=== PATIENT | female | born 1970 | race Caucasian/White ===

== ENCOUNTER 2019-12-11 18:49 | Emergency (ER) | payer MEDICAID, SELFPAY ==
[2019-12-11 19:15] VITALS: BP 131/79; PULSE 98; RESP 18; TEMP 36.3; O2SAT 100
--- NOTE | 2019-12-11 21:37 | ED.ALLEREA ---
HPI - Allergic Reaction General Chief complaint: Allergic Reaction Stated complaint: hives x3 days Time Seen by Provider: 12/11/19 20:27 History of Present Illness HPI narrative: Patient is a 49-year-old female who reports the development of times over the last 3 days. Began on her arms and they have gotten bigger in size. They have spread across her entire body. She noticed prior to coming to the ER that her left tongue began swelling. No difficulty breathing or swallowing. No overt fevers chills or sweats. She has not started any new medications. She reports she takes levothyroxine as well as venlafaxine. Has not tried any antihistamines. Reports that with her hypothyroidism she occasionally gets hives but not to this extent. Related Data Home Medications Medication Instructions Recorded Confirmed levothyroxine 12/11/19 12/11/19 venlafaxine mg PO 12/11/19 Allergies Allergy/AdvReac Type Severity Reaction Status Date / Time aspirin Allergy Mild Unknown Verified 12/11/19 20:18 butalbital Allergy Mild Unknown Verified 12/11/19 20:18 caffeine Allergy Mild Unknown Verified 12/11/19 20:18 codeine Allergy Mild Unknown Verified 12/11/19 20:18 penicillin G Allergy Mild Unknown Verified 12/11/19 20:18 pseudoephedrine Allergy Mild Unknown Verified 12/11/19 20:18 sulfamethoxazole Allergy Mild Unknown Verified 12/11/19 20:18 trimethoprim Allergy Mild Unknown Verified 12/11/19 20:18 butorphanol Allergy Unknown Unknown Verified 12/11/19 20:18 hydrocodone Allergy Unknown Unknown Verified 12/11/19 20:18 morphine Allergy Unknown Unknown Verified 12/11/19 20:18 Penicillins Allergy Unknown Unknown Verified 12/11/19 20:18 tramadol Allergy Unknown Unknown Verified 12/11/19 20:18 OTHERS Allergy Mild Unknown Uncoded 12/11/19 20:18 DIPHENHYDRAMINE HCL Allergy Unknown Unknown Uncoded 12/11/19 20:18 PCN Allergy Unknown Unknown Uncoded 12/11/19 20:18 Review of Systems Review of Systems: All systems reviewed & are unremarkable except as noted in HPI and below Constitutional: Constitutional: Denies chills, Denies fever(s) and Denies weakness ENT: Denies dysphagia, Denies nasal congestion and Denies sore throat Cardiovascular: Cardiovascular: Denies chest pain and Denies radiating jaw, neck or arm pain Respiratory: Respiratory: Denies cough, Denies dyspnea and Denies wheezing Integumentary/Breasts: Skin/Breast: Reports pruritus, Reports erythema and Reports rash PMFSH Past Medical History Medical History (Updated 12/11/19 @ 23:48 by Odilno Dawson MD) Hypothyroidism Surgical History Surgical History (Updated 12/11/19 @ 23:44 by Odilon Dawson MD) No pertinent past surgical history Family History Family History (Updated 09/09/15 @ 23:19 by DOCTOR UNKNOWN) Father Hypertension Family history of diabetes mellitus in first degree relative Patient's father is Mother Family history of chronic obstructive pulmonary disease Family history of lung cancer Grandparent Diabetes mellitus Social History Social History Smoking status: Never smoker Second hand tobacco smoke exposure: No Alcohol intake: never Exam Narrative: Exam Narrative: GENERAL: Well-appearing, well-nourished, and in no acute distress. HEAD: Normocephalic, atraumatic. ENT: Mucous membranes moist. Mild edema left anterior tongue. Normal posterior oropharynx. CHEST: Clear to auscultation. No respiratory distress. HEART: Regular rate and rhythm. Normal peripheral pulses. ABDOMEN: Soft, nontender, nondistended. EXTREMITIES: Normal range of motion. No edema. SKIN: Warm, dry, urticarial rash across the back and upper extremities. Small spot left of the left eye. NEURO: Alert and oriented x3. Course Course Emergency Course: Rash nearly resolved with Benadryl/prednisone/famotidine. Swelling of the tongue has gone away. Noted with breathing or swallowing. Discharge home with prednisone/vomiting/Benadryl. Recommend
[2019-12-11] MEDS: diphenhydrAMINE HCl INJ 50 MG/ML VIAL 25 MG IV PUSH (21:45)
[2019-12-11] MEDS: FAMOTIDINE 20 MG/2 ML VIAL IV PUSH (21:45)
[2019-12-11] MEDS: methylPREDNISolone SOD SUCC 125 MG VIAL IV PUSH (21:45)
[2019-12-11 22:43] VITALS: BP 124/86; PULSE 84; RESP 17; O2SAT 98
[2019-12-12 00:15] VITALS: BP 122/64; PULSE 84; RESP 17; O2SAT 98
== END 2019-12-12 00:17 | disposition home or self-care (01) ==
PROVIDERS: Emergency Provider Emergency Medicine; PCP Physician Assistant
DX: L50.9 Urticaria, unspecified (principal); E03.9 Hypothyroidism, unspecified
CPT/HCPCS: 96374; 96375; 99284; J1200; J2930

== ENCOUNTER 2021-11-16 17:37 | Emergency (ER) | payer BC, SELFPAY ==
--- NOTE | ~2021-11-16 | XR_ITS ---
XR chest 2V 11/16/2021 18:07 Indication: Chest pain Procedure: 2 view chest Comparison: No prior studies for comparison. Findings: There are bilateral interstitial infiltrates with peribronchial thickening. No pleural effu jonh or pneumothorax. Heart size normal. No acute osseous abnormality. Impression: 1: Bilateral interstitial infiltrates of the mid and lower lungs which may represent atypical pneumon ia or edema. Reviewed, dictated and finalized at location A. Impression: 1: Bilateral interstitial infiltrates of the mid and lower lungs which may repr esent atypical pneumonia or edema.
--- NOTE | 2021-11-16 17:38 | ECG_ITS ---
Measurements Intervals [place] Rate: 100 P: 54 MD: 155 QRS: 66 QRSD: 81 T: 86 QT: 314 QTc: 405 Interpretive Statements SINUS TACHYCARDIA MINIMAL VOLTAGE CRITERIA FOR LVH, CONSIDER NORMAL VARIANT [MEETS CRITERIA IN ONE OF: R(aVL), S(V1), R(V5), R(V5/V6)+S(V1)] NONSPECIFIC ST-T-WAVE ABNORMALITY ABNORMAL RHYTHM ECG NO PREVIOUS ECG AVAILABLE FOR COMPARISON Electronically Signed On 11-16-2021 17:52:53 CDT by Gold Bynum M.D.
[2021-11-16 17:46] VITALS: BP 142/83; PULSE 103; RESP 18; TEMP 37; O2SAT 100
[2021-11-16 18:11] LABS: Basophils Absolute Auto 0.1 K/mm3 (0.0-0.1); Basophils Percent Auto 0.7 % (0.2-1.2); Eosinophils Absolute Auto 0.2 K/mm3 (0-0.3); Hematocrit 43.1 % (37.0-47.0); Hemoglobin 14.1 g/dL (12.0-15.0); Immature Granulocyte Absolute 0.02 K/mm3 (0.00-0.031); Immature Granulocyte Percent A 0.2 % (0-0.5); Lymphocytes Percent Auto 25.4 % (18.3-44.2); Mean Corpuscular HGB Conc 32.7 g/dl (32-36); Mean Corpuscular Hemoglobin 29.7 pg (26-34); Mean Corpuscular Volume 90.7 fl (80-100); Monocytes Absolute Auto 1.4 K/mm3 (0.1-0.6); Monocytes Percent Auto 12.8 % (2.6-8.5); Neutrophils Absolute Auto 6.3 K/mm3 (1.3-6.7); Neutrophils Percent Auto 58.9 % (45.5-73.1); Platelet Count Result 201 k/mm3 (150-375); Red Blood Count 4.75 M/mm3 (4.2-5.4); Red Cell Distribution Width 13.7 % (11.5-14.5); White Blood Count 10.7 K/mm3 (4.5-10.0)
[2021-11-16 18:21] LABS: Alanine Aminotransferase 103 U/L (6-35); Albumin Level 4.2 g/dL (3.5-5.1); Alkaline Phosphatase 293 U/L (38-126); Anion Gap 14 mmol/L (8-16); Aspartate Amino Transferase 109 U/L (14-36); Bilirubin,Total 0.4 mg/dL (0.2-1.3); Blood Urea Nitrogen 13 mg/dL (7-17); Calcium 9.4 mg/dL (8.4-10.2); Carbon Dioxide 24 mmol/L (22-30); Chloride 104 mmol/L (98-107); Estimated CRCL calculation 93 ml/min; Estimated Glomerular Filt Rate > 60; Glucose 122 mg/dL (65-110); Lipase 112 U/L (23-300); Potassium 3.8 mmol/L (3.4-5.0); Sodium 142 mmol/L (137-145)
[2021-11-16 18:22] LABS: INR 1.1; Prothrombin Time 13.3 Seconds (11.1-14.7)
[2021-11-16 18:23] LABS: Partial Thromboplastin Time 29.9 SECONDS (22.3-36.8)
[2021-11-16 18:32] LABS: Troponin I < 0.012 ng/mL (0.000-0.034)
--- NOTE | 2021-11-16 19:34 | PC.NURSE ---
no answer at triage
== END 2021-11-16 19:34 | disposition left against medical advice (07) ==
PROVIDERS: Emergency Provider Emergency Medicine; PCP Physician Assistant
DX: R10.13 Epigastric pain (principal)
CPT/HCPCS: 36415; 71046; 80053; 83690; 84484; 85025; 85610; 85730; 93005; 99199

== ENCOUNTER 2021-12-13 10:21 | Outpatient (CLI) | payer BC, SELFPAY ==
--- NOTE | 2021-12-19 15:50 | WPDHOLTEREM ---
Holter/Event Monitor Holter/Event Monitor Date of procedure: 12/13/21 Holter/Event Procedure: 48 Hr Holter Monitor Indications: Palpitations Conclusion: 1. 48 hour holter monitor on 12/13/21. 2. Underlying rhythm is sinus rhythm. HR range 48-138 bpm; average HR 82 bpm. 3. No premature supraventricular complexes. No supraventricular tachycardia. 4. No premature ventricular complexes. No ventricular tachycardia. 5. No sinoatrial or atrioventricular blocks. No significant pauses greater than 2 seconds. 6. No symptoms available for correlation.
== END 2021-12-13 10:22 | disposition home or self-care (01) ==
LOC: ANHCARD 10:26
PROVIDERS: PCP Physician Assistant; Visit Provider Physician Assistant
DX: R00.2 Palpitations (principal)
CPT/HCPCS: 93225; 93226

== ENCOUNTER 2022-07-26 19:14 | Emergency (ER) | payer BC, SELFPAY ==
[2022-07-26 19:36] VITALS: BP 136/61; PULSE 70; RESP 18; TEMP 36.3; O2SAT 98
--- NOTE | 2022-07-26 21:41 | PC.NURSE ---
no answer for xray
--- NOTE | 2022-07-26 22:43 | PC.NURSE ---
no answer at triage for v/s
== END 2022-07-26 22:43 | disposition left against medical advice (07) ==
PROVIDERS: Emergency Provider Emergency Medicine; PCP Physician Assistant
DX: M25.562 Pain in left knee (principal)
CPT/HCPCS: 99199

== ENCOUNTER 2022-07-28 10:54 | Outpatient (CLI) | payer BC, SELFPAY ==
--- NOTE | ~2022-07-28 | US_ITS ---
US venous doppler [facility] DATE: 07/28/2022 11:49 INDICATION: Evaluate for deep venous thrombosis TECHNIQUE: Real-time and color flow imaging and Doppler analysis of the veins of the left lower extre mity COMPARISON: None FINDINGS: Left greater saphenous vein is patent. There is slow flow particularly in the popliteal vein. Flow is demonstrated, with no compression of t he femoral, popliteal, posterior tibial and peroneal veins. No intraluminal thrombus is identified. IMPRESSION: No evidence of deep venous thrombosis of left lower extremity Reviewed, dictated and finalized at Location [facility]. Reviewed, dictated and finalized at location A.
== END 2022-07-28 10:55 | disposition home or self-care (01) ==
LOC: ANHIMG 11:05
PROVIDERS: PCP Physician Assistant; Visit Provider Physician Assistant
DX: R60.0 Localized edema (principal)
CPT/HCPCS: 93971

== ENCOUNTER 2023-12-24 18:26 | Emergency (ER) | payer OTHER, SELFPAY ==
[2023-12-24 18:41] VITALS: BP 132/118; PULSE 85; RESP 19; TEMP 37.2; O2SAT 100
--- NOTE | 2023-12-24 19:47 | ED_ITS ---
HPI - Skin/Abscess/Foreign Bdy General Chief complaint: Skin/Abscess/Foreign Body Stated complaint: left foot rash hurts Time Seen by Provider: 12/24/23 19:47 Source: patient, RN notes reviewed and old records reviewed Mode of arrival: ambulatory Limitations: no limitations History of Present Illness HPI narrative: Patient presents with complaints rash to the left foot that is beginning to extend up the leg. She reports that she believes the rash began about a week ago, it is progressing and worsening. She admits that there has been some itching, she has been scratching at the site and states that that seems to be making things worse. She has not taken any medication for her symptoms. She reports that she does not believe in taking medications. She reports the only reason she is here is because her daughter made her come. Patient is difficult to elicit information from. There is no swelling or deformity noted. She denies any fever, chills, sweats. She denies any injury or trauma. No other concerns or complaints at this time Related Data Allergies Allergy/AdvReac Type Severity Reaction Status Date / Time aspirin Allergy Mild Unknown Verified 12/24/23 18:32 butalbital Allergy Mild Unknown Verified 12/24/23 18:32 caffeine Allergy Mild Unknown Verified 12/24/23 18:32 codeine Allergy Mild Unknown Verified 12/24/23 18:32 penicillin G Allergy Mild Unknown Verified 12/24/23 18:32 pseudoephedrine Allergy Mild Unknown Verified 12/24/23 18:32 sulfamethoxazole Allergy Mild Unknown Verified 12/24/23 18:32 trimethoprim Allergy Mild Unknown Verified 12/24/23 18:32 butorphanol Allergy Unknown Unknown Verified 12/24/23 18:32 hydrocodone Allergy Unknown Unknown Verified 12/24/23 18:32 morphine Allergy Unknown Unknown Verified 12/24/23 18:32 Penicillins Allergy Unknown Unknown Verified 12/24/23 18:32 tramadol Allergy Unknown Unknown Verified 12/24/23 18:32 OTHERS Allergy Mild Unknown Uncoded 12/24/23 18:32 DIPHENHYDRAMINE HCL Allergy Unknown Unknown Uncoded 12/24/23 18:32 PCN Allergy Unknown Unknown Uncoded 12/24/23 18:32 Review of Systems Review of Systems: All systems reviewed & are unremarkable except as noted in HPI and below Constitutional: Constitutional: Reports as per HPI and Reports no additional constitutional complaints ENT: Reports system reviewed and no additional complaints, except as documented Cardiovascular: Cardiovascular: Reports no additional cardiovascular complaints Respiratory: Respiratory: Reports no additional respiratory complaints Gastrointestinal: Gastrointestinal: Reports no additional gastrointestinal complaints Integumentary/Breasts: Skin/Breast: Reports system reviewed and no additional complaints, except as docu, Reports as per HPI and Reports erythema PMFSH Past Medical History Medical History (Updated 12/25/23 @ 00:01 by Background Daemon) Anxiety Decreased exercise tolerance Depression Elevated liver enzymes Encounter to establish care History of broken leg Hyperlipidemia Hypersomnia Hypothyroidism Idiopathic urticaria Lupus Muscle cramp Prediabetes Seasonal allergies Snoring SOB (shortness of breath) on exertion Tobacco abuse Surgical History Surgical History History of surgery on arm No pertinent past surgical history Family History Family History Father Hypertension Family history of diabetes mellitus in first degree relative Patient's father is Mother Family history of chronic obstructive pulmonary disease Family history of lung cancer Grandparent Diabetes mellitus Social History Social History Smoking status: Current every day smoker Tobacco type: cigarettes Second hand tobacco smoke exposure: No Alcohol intake: never Substance use: never Comments At the time of my signature, I reviewed and agree with the nursing past medical, surgical, social, and family history. There is no relevant family history pertinent to the patient complaint. Exam Const: General: cooperative, no acute distress, alert and awake Orientation/consciousness: oriented to person, oriented to place and oriented to time HENMT: Head: normal to inspection Resp: Effort & Inspection: normal respiratory effort and able to speak in complete sentences Auscultation: clear to auscultation bilaterally, no crackles, no rales, no rhonchi and no wheezes Cardio: Palpation: normal PMI Rate: regular rate Rhythm: regular rhythm Heart sounds: S1 normal heart sound present and S2 normal heart sound present Skin: Full body images: 1. Flat red rash, tender to touch. Nonblanching. There is some surrounding petechiae in linear pattern, consistent with scratching at the site Neuro: General: oriented to person, oriented to place and oriented to time Cranial nerves: Yes CN's II-XII intact bilaterally Psych: Appearance: grossly normal Thought process: Normal thought process present Insight: Fair insight present (Psych) Judgement: Fair judgement present (Psych) Course Course Level of Care: Express Care Visit Vital Signs Vital signs: Vital Signs Temperature 98.9 F 12/24/23 18:41 Pulse Rate 85 12/24/23 18:41 Respiratory Rate 19 12/24/23 18:41 Blood Pressure 132/118 H 12/24/23 18:41 Pulse Oximetry 100 12/24/23 18:41 Oxygen Delivery Room Air 12/24/23 18:41 Temperature 98.9 F 12/24/23 18:41 Pulse Rate 85 12/24/23 18:41 Respiratory Rate 19 12/24/23 18:41 Blood Pressure 132/118 H 12/24/23 18:41 Pulse Oximetry 100 12/24/23 18:41 Oxygen Delivery Room Air 12/24/23 18:41 Reviewed MDM - Skin/Abscess/Foreign Bdy MDM Narrative Medical decision making narrative: Flat red rash noted to lateral aspect of the left foot. There is some surrounding petechia in a linear pattern, patient admits to scratching at the site, the arrangement of the petechia are consistent with this. There is as excessive warmth, given tenderness will treat as developing cellulitis. Patient strongly advised to go to emergency department with any new or worsening symptoms, including but not limited to spreading of the rash or petechia. Discharge instructions reviewed with patient, as well as provided in writing per nursing staff. The instructions also include specific and strict return/GO TO THE ER as well as f/u information. All questions have been answered, and the patient deny any further questions with discharge and discharge plan. Some parts of this dictation were generated by voice recognition software and may contain typographical and/or grammatical inaccuracies. Differential Diagnosis Differential diagnosis: Likely abscess of skin or subcutaneous tissue, dermatophytosis, allergic reaction to drug, cellulitis, insect bites and contact dermatitis Medical Records Attestation: I reviewed the patient's medical records. Discharge Plan Discharge Clinical Impression: Cellulitis Patient Disposition: Home, Self-Care Condition: Stable Instructions: Antibiotic Form Additional Instructions: Take all medications as prescribed. Follow with primary care provider. Emergency department for any new or worsening symptom Patient Language: Mohawk Prescriptions: New doxycycline hyclate 100 mg capsule 100 mg PO BID Qty: 20 0RF No Action pantoprazole 20 mg tablet,delayed release (DR/EC) 20 mg PO QAM Qty: 90 3RF levothyroxine 88 mcg tablet 88 mcg PO DAILY Qty: 90 3RF atorvastatin 40 mg tablet 40 mg PO DAILY Qty: 90 3RF cetirizine 10 mg tablet 10 mg PO DAILY Qty: 90 3RF diphenhydramine HCl [Benadryl Allergy] 25 mg tablet 25 mg PO Q6H Qty: 20 0RF venlafaxine 150 mg capsule,extended release 24hr 150 mg PO DAILY Qty: 30 5RF Rx Instructions: take with venlafaxine 75mg to equal 225mg daily venlafaxine 75 mg capsule,extended release 24hr 75 mg PO DAILY Qty: 30 5RF Rx Instructions: take with venlafaxine 150mg to equal 225mg daily Follow-up/Referrals: Eladia Damon NP [Primary Care Provider] - 1 Day Time of Disposition: 19:56
== END 2023-12-24 20:10 | disposition home or self-care (01) ==
PROVIDERS: Emergency Provider Nurse Practitioner Family; PCP Nurse Practitioner Family
DX: L03.116 Cellulitis of left lower limb (principal); E78.5 Hyperlipidemia, unspecified; E03.9 Hypothyroidism, unspecified; R73.03 Prediabetes; F17.210 Nicotine dependence, cigarettes, uncomplicated
CPT/HCPCS: 99213; G0463

== ENCOUNTER 2024-04-20 16:42 | Outpatient (CLI) | payer OTHER, SELFPAY ==
--- NOTE | ~2024-04-20 | US_ITS ---
Limited Abdominal Sonogram: Real-time sonographic imaging of the right upper quadrant was performed. Clinical History: Abnormal serum enzyme levels Findings: The liver appears echogenic, with no evidence of mass lesion or bile duct dilatation. Main portal vein demonstrates normal direction of flow. The gallbladder is well distended, and appears no rmal with no evidence of gallstone or wall thickening. The common bile duct measures 3 mm. The visua lized pancreas, aorta, and IVC are unremarkable. Impression: Diffuse fatty infiltration of the liver. Reviewed, dictated and finalized at location M. Impression: Diffuse fatty infiltration of the liver.
--- OUTSIDE RECORDS SUMMARY | 2024-04-20 18:59 | XMS_ITS | Clinical Summary ---
Author Organization [facility] Address [address] [place] [id number] Care Team Providers Care Director Game Name Role Phone DamonEladia MARIANO Primary Care Provider [phone] Allergies Active Allergy Reactions Criticality Noted Date Comments Amoxicillin Edema Medium 01/02/2024 Morphine Swelling Medium 01/02/2024 Eyes and lips Sulfa Hives Medium 01/02/2024 Social History Tobacco Use Types Packs/Day Years Used Date Smoking Tobacco: Never Assessed Personal Safety Answer Date Recorded Have you ever been in or are you currently in a harmful physical or emotional relationship or is someone making you feel afraid or unsafe? Denies 01/02/2024 Comments No Sex and Gender Information Value Date Recorded Sex Assigned at Not on file Legal Sex Female 6:13 PM INTERNET DEVELOPER Gender Identity Not on file Sexual Orientation Not on file Last Filed Vital Signs Vital Sign Reading Time Taken Comments Blood Pressure 110/96 01/03/2024 12:00 AM INTERNET DEVELOPER Pulse 84 01/03/2024 12:00 AM INTERNET DEVELOPER Temperature 36.8 C (98.3 F) 01/02/2024 6:24 PM INTERNET DEVELOPER Respiratory Rate 16 01/03/2024 12:00 AM INTERNET DEVELOPER Oxygen Saturation 99% 01/02/2024 11:12 PM INTERNET DEVELOPER Inhaled Oxygen Concentration - - Weight 88 kg (194 lb 0.1 oz) 01/02/2024 6:24 PM INTERNET DEVELOPER Height 180.3 cm (5' 11 ) 01/02/2024 6:24 PM INTERNET DEVELOPER Body Mass Index 27.06 01/02/2024 6:24 PM INTERNET DEVELOPER Plan of Treatment Health Maintenance Due Date Last Done Comments Breast Cancer Screening-Mammogram 1969 Cervical Cancer Screening 1969 Colon Cancer Screening-Colonoscopy 1969 Depression Screening 1969 Hepatitis C Screening 1969 DTaP/Tdap/Td Vaccine (1 - Tdap) 1980 Hepatitis B Screening 06/03/1987 Regular Well Visit/Exam 18-64 06/03/1987 Zoster Vaccine (1 of 2) 06/03/2019 Influenza Vaccine (#1) 2023 Pneumococcal vaccine <65 Aged Out No longer eligible based on patient's age to complete this topic Insurance [facility] Care Teams Director Game Relationship Specialty Start Date End Date Eladia Damon NP [address] [id number] PCP - General Family Medicine 01/02/24
--- OUTSIDE RECORDS SUMMARY | 2024-04-20 18:59 | XMS_ITS | Referral Summary ---
Author Organization [facility] Address [address] [facility] [place] [address] Care Team Providers Care Mines Safety Engineer Name Role Phone Katty Turk PA-C Primary Care Provider Source Comments [facility],non-owned Affiliates and Associated Physician Practices is amultiple site organization consisting of ambulatory clinics and hospital sitesin [place], [place], [place] and [place]. This disclosure is being madepursuant to the Care Everywhere program and may not contain all information available regarding this patient. Last updated 17.[facility] Allergies Active Allergy Reactions Criticality Noted Date Comments Bactrim Ds Itching,Rash,Swelling Medium 02/15/2021 Morphine Elevated Blood Pressure,Itching,Rash,Shortness of Breath,Skin Reactions,Tinnitus High 02/15/2021 Penicillins Anaphylaxis,Itching,Rash High 02/15/2021 Toradol Itching,Rash,Skin Reactions Medium 02/15/19 22 Medications * Be aware that medications may not be up to date on this document. Alwaysverify current medications with the patient. Medication Sig Dispensed Refills Start Date End Date Status atorvastatin (LIPITOR) 20 MG tablet 12/26/2020 Active cetirizine (ZYRTEC) 10 MG tablet Take 10 mg by mouth once daily 01/23/2021 Active EUTHYROX 112 MCG tablet 12/27/2020 Active Multiple Vitamins-Minerals (PRESERVISION AREDS 2) capsule 05/27/2019 Active venlafaxine XR 24hr (EFFEXOR XR) 150 MG capsule Take 150 mg by mouth once daily 01/25/2021 Active hydroxychloroquine (PLAQUENIL) 200 MG tabletIndications:Syst emic lupus erythematosus, unspecified SLE type, unspecified organ involvement status (HCC) Take 1 (one) tablet by mouth 2 times daily 60 tablet 2 02/20/2021 Active Active Problems Problem Noted Date Diagnosed Date Positive RANCHO (antinuclear antibody) 02/15/2021 Assessment & Plan (02/15/2021 11:24 AM CAPTAIN'S ASSISTANT): Identification of direct positive RANCHO with low positive anti double strand DNA antibody and borderline positive anti chromatin antibody but without other specific diagnostic classification criteria to meet a diagnosis systemic lupus erythematosus. She does have a past history of possible thyroiditis but records from 1996 are not available for full review units not certain if this represented Claudia's autoimmune thyroiditis or perhaps Graves disease but she did receive I 131 thyroid ablation therapy and now is on levothyroxine replacement. She also has experience chronic daily eyes for the past 2 years but seems to be controlled on daily use of [id number] Zyrtec. Rarely can hives be a manifestation of systemic lupus erythematosus. Following further discussion she was in agreement to proceed with some additional follow-up laboratory testing to help sort out the significance of her positive RANCHO direct screening test results and determine if this seems to correspond with a possible underlying systemic connective tissue disease including systemic lupus erythematosus although without current criteria for such diagnosis versus a f alse-positive result without any direct clinical correlation or perhaps might be related to previous autoimmune thyroid disorder. Further follow-up will be based upon additional laboratory testing results. History of hypothyroidism 02/15/2021 Alopecia 02/15/2021 Chronic idiopathic urticaria 02/15/2021 Social History Tobacco Use Types Packs/Day Years Used Date Smoking Tobacco: Every Day Cigarettes 0.5 15 Smokeless Tobacco: Never Tobacco Cessation:Ready to Q uit: No; Counseling Given: Yes Sex and Gender Information Value Date Recorded Sex Assigned at Female 02/07/2021 3:42 PM CAPTAIN'S ASSISTANT Gender Identity Female 02/07/2021 3:42 PM CAPTAIN'S ASSISTANT Sexual Orientation Straight 02/07/2021 3: 42 PM CAPTAIN'S ASSISTANT Last Filed Vital Signs Vital Sign Reading Time Taken Comments Blood Pressure 140/70 02/15/2021 10:30 AM CAPTAIN'S ASSISTANT Pulse 90 02/15/2021 10:30 AM CAPTAIN'S ASSISTANT Temperature 36.1 C (97 F) 02/15/2021 10:30 AM CAPTAIN'S ASSISTANT Respiratory Rate 16 02/15/2021 10:30 AM CAPTAIN'S ASSISTANT Oxygen Saturation 99% 02/15/2021 10:30 AM CAPTAIN'S ASSISTANT Inhaled Oxygen Concentration - - Weight 84.8 kg (187 lb) 02/15/2021 10:30 AM CAPTAIN'S ASSISTANT Height 182.9 cm (6') 02/15/2021 10:30 AM CAPTAIN'S ASSISTANT Body Mass Index 25.36 02/15/2021 10:30 AM CAPTAIN'S ASSISTANT Plan of Treatment Not on file Care Teams Mines Safety Engineer Relationship Specialty Start Date End Date Katty Turk PA-C [address] [place] [phone] PCP - General 04/09/22
--- OUTSIDE RECORDS SUMMARY | 2024-04-20 18:59 | XMS_ITS | Patient Health Summary ---
Author Organization [facility] Address [address] [place] [address] Care Team Providers Care Optometrist Owner Name Role Phone Katty Turk PA-C Primary Care Provider Note from [facility],non-owned Affiliates and Associated Physician Practices is amultiple site organization consisting of ambulatory clinics and hospital sitesin [place] and [place]. This disclosure is being madepursuant to the Care Everywhere program and may not contain all information available regarding this patient. Last updated 17.[facility] Allergies * Bactrim Ds(Itching,Rash,Swelling) -Medium Criticality * Morphine(Elevated Blood Pressure,Itching,Rash,Shortness of Breath,Skin Reactions,Tinnitus) -High Criticality * Penicillins(Anaphylaxis,Itching,Rash) -High Criticality * Toradol(Itching,Rash,Skin Reactions) -Medium Criticality Medications * Be aware that medications may not be up to date on this document. Alwaysverify current medications with the patient. * atorvastatin (LIPITOR) 20 MG tablet(Started 12/26/2020) * cetirizine (ZYRTEC) 10 MG tablet(Started 01/23/2021) Take 10 mg by mouth once daily * EUTHYROX 112 MCG tablet(Started 12/27/2020) * Multiple Vitamins-Minerals (PRESERVISION AREDS 2) capsule(Started 05/27/2019) * venlafaxine XR 24hr (EFFEXOR XR) 150 MG capsule(Started 01/25/2021) Take 150 mg by mouth once daily * hydroxychloroquine (PLAQUENIL) 200 MG tablet(Started 02/20/2021) Take 1 (one) tablet by mouth 2 times daily 2 refills by 02/20/2022 Active Problems Problem Noted Date Diagnosed Date Positive RANCHO (antinuclear antibody) 02/15/2021 History of hypothyroidism 02/15/2021 Alopecia 02/15/2021 Chronic idiopathic urticaria 02/15/2021 Social History Tobacco Use Types Packs/Day Years Used Date Smoking Tobacco: Every Day Cigarettes 0.5 15 Smokeless Tobacco: Never Tobacco Cessation:Ready to Q uit: No; Counseling Given: Yes Sex and Gender Information Value Date Recorded Sex Assigned at Female 02/07/2021 3:42 PM DIRECTOR OF EVENTS Gender Identity Female 02/07/2021 3:42 PM DIRECTOR OF EVENTS Sexual Orientation Straight 02/07/2021 3: 42 PM DIRECTOR OF EVENTS Last Filed Vital Signs Vital Sign Reading Time Taken Comments Blood Pressure 140/70 02/15/2021 10:30 AM DIRECTOR OF EVENTS Pulse 90 02/15/2021 10:30 AM DIRECTOR OF EVENTS Temperature 36.1 C (97 F) 02/15/2021 10:30 AM DIRECTOR OF EVENTS Respiratory Rate 16 02/15/2021 10:30 AM DIRECTOR OF EVENTS Oxygen Saturation 99% 02/15/2021 10:30 AM DIRECTOR OF EVENTS Inhaled Oxygen Concentration - - Weight 84.8 kg (187 lb) 02/15/2021 10:30 AM DIRECTOR OF EVENTS Height 182.9 cm (6') 02/15/2021 10:30 AM DIRECTOR OF EVENTS Body Mass Index 25.36 02/15/2021 10:30 AM DIRECTOR OF EVENTS Procedures * TIARA STAINING PATTERNS REFLEXED(Performed 02/15/2021) * CHIKI DIRECT(Performed 02/15/2021) Performed for Positive RANCHO (antinuclear antibody) * RANCHO BLOOD SCREEN W/REFLEX TITER(Performed 02/15/2021) Performed for Positive RANCHO (antinuclear antibody) * TSH REFLEX FREE T4(Performed 02/15/2021) Performed for History of hypothyroidism * COMPLEMENT C3 C4 PANEL(Performed 02/15/2021) Performed for Positive RANCHO (antinuclear antibody) * CARDIOLIPIN ANTIBODY IGA/IGG/IGM PANEL(Performed 02/15/2021) Performed for Positive RANCHO (antinuclear antibody) * LUPUS ANTICOAGULANT PANEL W RFLX(Performed 02/15/2021) Performed for Positive RANCHO (antinuclear antibody) * LAB(Performed 07/28/2020) * LAB(Performed 07/27/2020) Results * TSH REFLEX FREE T4 (02/15/2021 11:48 AM DIRECTOR OF EVENTS) TSH 0.427 0.350 - 4.940 uIU/mL [facility] INSURANCE BILL Blood BLOOD SPECIMEN / Unknown 02/15/2021 11:48 AM DIRECTOR OF EVENTS 02/15/2021 Narrative Resulting Agency Comment Lab Testing performed at: [address] [id number] Hernandez Altamirano DO LAB - CHEMISTRY ORDE RABLES Performing Organization Address City/[facility]/ZIP Co de Phone Number [facility] INSURANCE BILL [address] [place] [address] * (ABNORMAL) TIARA STAINING PATTERNS REFLEXED (02/15/2021 11:48 AM DIRECTOR OF EVENTS) Pathologist [facility] Homogeneous Pattern 1:640(A) <1:80 [facility] INSURANCE BILL Note [facility] INSURANCE BILL Comment: COMMENT RANCHO ([facility]) Mixed pattern Methodology: Indirect Immunofluorescence Assay (IFA) utilgogoi Hep-2-Gamma cells. Nuclear Membrane Pattern 1:2560 [facility] INSURANCE BILL 02/15/2021 11:4 8 AM DIRECTOR OF EVENTS 02/15/2021 Narrative Resulting Agency Comment Lab Testing performed at: [address] [id number] Hernandez Altamirano DO LAB - PATHOLOGY/CYTO LOGY ORDERABLES Performing Organization Address City/[facility]/ZIP Co de Phone Number [facility] INSURANCE BILL [address] [place] [address] * CARDIOLIPIN ANTIBODY IGA/IGG/IGM PANEL (02/15/2021 11:48 AM DIRECTOR OF EVENTS) Cardiolipin Antibody IgG 12 0 - 14 GPL U/mL [facility] INSURANCE BILL Comment: Negative: <15 Indeterminate: 15 - 20 Low-Med Positive: >20 - 80 High Positive: >80 Cardiolipin Antibody IgM 10 0 - 12 MPL U/mL [facility] INSURANCE BILL Comment: Negative: <13 Indeterminate: 13 - 20 Low-Med Positive: >20 - 80 High Positive: >80 Cardiolipin Antibody IgA <9 0 - 11 APL U/mL [facility] INSURANCE BILL Comment: Negative: <12 Indeterminate: 12 - 20 Low-Med Positive: >20 - 80 High Positive: >80 Blood BLOOD SPECIMEN / Unknown 02/15/2021 11:48 AM DIRECTOR OF EVENTS 02/15/2021 Narrative Resulting Agency Comment [facility] [address] [facility] [id number] Hernandez Altamirano DO LAB - SEROLOGY ORDER MAURILIO Performing Organization Address City/[facility]/ZIP Co de Phone Number [facility] INSURANCE BILL [address] [place] [address] * LUPUS ANTICOAGULANT PANEL W RFLX (02/15/2021 11:48 AM DIRECTOR OF EVENTS) Pathologist [facility] PTT-LA 31.8 0.0 - 51.9 sec [facility] INSURANCE BILL dRVVT 32.4 0.0 - 47.0 sec [facility] INSURANCE BILL Interpretation Comment: [facility] INSURANCE BILL Comment:No lupus anticoagula nt was detected. Blood BLOOD SPECIMEN / Unknown 02/15/2021 11:48 AM DIRECTOR OF EVENTS 02/15/2021 Narrative Resulting Agency Comment Lab Testing performed at: [address] [id number] Hernandez Altamirano DO LAB - HEMATOLOGY ORD ERABLES Performing Organization Address City/[facility]/ZIP Co de Phone Number [facility] INSURANCE BILL [address] [place] [address] * (ABNORMAL) RANCHO BLOOD SCREEN W/REFLEX TITER (02/15/2021 11:48 AM DIRECTOR OF EVENTS) RANCHO Positive (A) Negative [facility] INSURANCE BILL Comment: Methodology: Indirect Immunofluorescence Assay (IFA) utilgogoi ng Hep-2-Gamma cells. Blood BLOOD SPECIMEN / Unknown 02/15/2021 11:48 AM DIRECTOR OF EVENTS 02/15/2021 Narrative Resulting Agency Comment Lab Testing performed at: [facility] [address] [facility] [id number] Hernandez Altamirano DO LAB - CHEMISTRY ORDE RABLES Performing Organization Address City/[facility]/ZIP Co de Phone Number [facility] INSURANCE BILL [address] [place] [address] * CHIKI DIRECT (02/15/2021 11:48 AM DIRECTOR OF EVENTS) Chiki Direct Negative Negative [facility] INSURANCE BILL Blood BLOOD SPECIMEN / Unknown 02/15/2021 11:48 AM DIRECTOR OF EVENTS 02/15/2021 Narrative Resulting Agency Comment Lab Testing performed at: [facility] [address] [facility] [id number] Hernandez Altamirano DO LAB - BLOOD BANK ORD ERABLES Performing Organization Address [facility]/ZIP Co de Phone Number [facility] INSURANCE BILL [address] [place] [address] * COMPLEMENT C3 C4 PANEL (02/15/2021 11:48 AM DIRECTOR OF EVENTS) Complement C3 148 82 - 167 mg/dL [facility] INSURANCE BILL Complement C4 30 12 - 38 mg/dL [facility] INSURANCE BILL Blood BLOOD SPECIMEN / Unknown 02/15/2021 11:48 AM DIRECTOR OF EVENTS 02/15/2021 Narrative Resulting Agency Comment Lab Testing performed at: [facility] [address] [facility] [id number] Hernandezserafin Altamirano LAB - CHEMISTRY HÉCTORE RABOLGA Performing Organization Address City/[facility]/ZIP Co de Phone Number [facility] INSURANCE BILL [address] [place] [address] * LAB (07/28/2020) Only the most recent of2 resultswithin the time period is included. Scanned Document SCANNING ONLY Care Teams Optometrist Owner Relationship Specialty Start Date End Date Katty Turk PA-C [address] [place] [phone] PCP - General 04/09/22
--- OUTSIDE RECORDS SUMMARY | 2024-04-20 18:59 | XMS_ITS | Clinical Summary ---
Author Organization [facility] Address [address] [facility] [place] [address] Care Team Providers Care Irrigation Specialist Name Role Phone Katty Turk PA-C Primary Care Provider Source Comments [facility],non-owned Affiliates and Associated Physician Practices is amultiple site organization consisting of ambulatory clinics and hospital sitesin [place], [place], [place] and [place]. This disclosure is being madepursuant to the Care Everywhere program and may not contain all information available regarding this patient. Last updated 17.[facility] Allergies Active Allergy Reactions Criticality Noted Date [...] 02/15/2021 Assessment & Plan (02/15/2021 11:24 AM FITTER/WELDER): Identification of direct positive RANCHO with low [...] to be controlled on daily use of [id number] Zyrtec. Rarely can hives be a manifestation [...] Sex Assigned at Female 02/07/2021 3:42 PM FITTER/WELDER Gender Identity Female 02/07/2021 3:42 PM FITTER/WELDER Sexual Orientation Straight 02/07/2021 3: 42 PM FITTER/WELDER Last Filed Vital Signs Vital Sign Reading Time Taken Comments Blood Pressure 140/70 02/15/2021 10:30 AM FITTER/WELDER Pulse 90 02/15/2021 10:30 AM FITTER/WELDER Temperature 36.1 C (97 F) 02/15/2021 10:30 AM FITTER/WELDER Respiratory Rate 16 02/15/2021 10:30 AM FITTER/WELDER Oxygen Saturation 99% 02/15/2021 10:30 AM FITTER/WELDER Inhaled Oxygen Concentration - - Weight 84.8 kg (187 lb) 02/15/2021 10:30 AM FITTER/WELDER Height 182.9 cm (6') 02/15/2021 10:30 AM FITTER/WELDER Body Mass Index 25.36 02/15/2021 10:30 AM FITTER/WELDER Plan of Treatment Health Maintenance Due Date Last Done Comments COLOGUARD (AGES 45-75) - COL ON CA SCREENING 1969 COLON MONITORING 1969 COLONOSCOPY - COLON CA SCREENING 1969 CT COLONOGRAPHY - COLON CA SCREENING 1969 Colorectal Cancer Screening 1969 FIT - COLON CA SCREENING 1969 FLEX SIG - COLON CA SCREENING 1969 MAMMOGRAM 1969 PAP SMEAR 1969 HIV SCREENING 1984 HEPATITIS C SCREENING 05/29/1987 DTAP/TDAP/TD VACCINES (1 - Tdap) 1988 HEPATITIS B VACCINE (1 of 3 - 19+ 3-dose series) 1988 PNEUMOCOCCAL VACCINE 50+ (1 of 2 - PCV) 1988 PNEUMOCOCCAL VACCINE (1 of 2 - PCV) 1988 ZOSTER VACCINE (1 of 2) 06/03/2019 SCREENING FOR DIABETES 02/15/2021 COVID-19 VACCINE (1 - 2023-2 5 season) 2023 INFLUENZA VACCINE (#1) 2023 DEPRESSION SCREENING 02/12/2024 HIB VACCINE Aged Out No longer eligi ble based on patient's age to complete this topic HPV VACCINE Aged Out No longer eligi ble based on patient's age to complete this topic MENINGOCOCCAL (Group B) VACCINE Aged Out No longer eligible based on patient's age to complete this topic MENINGOCOCCAL VACCINE Aged Out No aaron montez eligible based on patient's age to complete this topic Care Teams Irrigation Specialist Relationship Specialty Start Date End Date Katty Turk PA-C [address] [place] [address] PCP - General 04/09/22
--- OUTSIDE RECORDS SUMMARY | 2024-04-20 18:59 | XMS_ITS | Referral Summary ---
Author Organization [facility] Address [address] [place] [address] Care Team Providers Care Wildland Fire Operations Specialist Name Role Phone Eladia Damon MARIANO Primary Care Provider [phone] Allergies Active Allergy Reactions Criticality Noted Date [...] on file Legal Sex Female 6:13 PM COMPATIBILITY TEST ENGINEER Gender Identity Not on file Sexual Orientation Not on file Last Filed Vital Signs Vital Sign Reading Time Taken Comments Blood Pressure 110/96 01/03/2024 12:00 AM COMPATIBILITY TEST ENGINEER Pulse 84 01/03/2024 12:00 AM COMPATIBILITY TEST ENGINEER Temperature 36.8 C (98.3 F) 01/02/2024 6:24 PM COMPATIBILITY TEST ENGINEER Respiratory Rate 16 01/03/2024 12:00 AM COMPATIBILITY TEST ENGINEER Oxygen Saturation 99% 01/02/2024 11:12 PM COMPATIBILITY TEST ENGINEER Inhaled Oxygen Concentration - - Weight 88 kg (194 lb 0.1 oz) 01/02/2024 6:24 PM COMPATIBILITY TEST ENGINEER Height 180.3 cm (5' 11 ) 01/02/2024 6:24 PM COMPATIBILITY TEST ENGINEER Body Mass Index 27.06 01/02/2024 6:24 PM COMPATIBILITY TEST ENGINEER Plan of Treatment Not on file Insurance [facility] Care Teams Wildland Fire Operations Specialist Relationship Specialty Start Date End Date Eladia Damon NP [address] [address] PCP - General Family Medicine 01/02/24
--- OUTSIDE RECORDS SUMMARY | 2024-04-20 18:59 | XMS_ITS | Continuity of Care Document ---
Author Organization [facility] Address [address] [facility] [place] [address] Phone Care Team Providers Care Carpenter Helper Name Role Phone Jesus Goode MD Unavailable Unavailable Allergies, Adverse Reactions, Alerts Substance Reaction Status Criticality erythromycin base Active No Informa tion morphine Active No Information amoxicillin Active No Information tramadol Active No Information guaifenesin Active No Information penicillin G Active No Information Sulfa (Sulfonamide Antibiotics) Active No Information codeine Active No Information naproxen Active No Information Medications Medication Instructions Dosage Effective Dates (start - stop) Status Comments Synthroid 112 mcg tablet take 1 tablet by oral route every day 112 MCG - Active Zocor 40 mg tablet take 1 tablet by ora l route every day in the evening 40 MG - Active Effexor XR 150 mg capsule,extended release take 1 capsule (150MG) by oral route every day 150 MG - Active Procedures Procedure Date OFFICE/OUTPATIENT VISIT, EST PREV VISIT, NEW, AGE 40-64 OFFICE/OUTPATIENT VISIT, NEW OFFICE/OUTPATIENT VISIT, EST PREV VISIT, EST, AGE 40-64 Advance Directives Directive Yes / No Effective Date File Name No Information Encounters Encounter Description Practice Location Reason(s) For Visit Diagnoses Date Provider Providers Copied on Encounter [facility], [address] [place], [place], [id number], tel:[phone] [facility] No Information 8 Russel Lee. [address] [facility] [place], [id number] , [place]. tel:[phone] OFFICE/OUTPA TIENT VISIT, EST [facility], [address] [place], [place], [address], [place] tel:[phone] [facility] hypothyroi dism1 (chief complaint) HLP (chief complaint) vitmai D (chief complaint) anxiety1 (chief complaint) HTN (chief complaint) HypothyroidismEssen tial (primary) hypertensionHyperli pidemiaVitamin D deficiency, unspecified Oct-0 7 Russel Lee. [address], [place], [place], [address] , [place]. tel:[phone] Referring Provider: Hoda Sebastian [address], [place], [place], [id number]. tel:[phone] PREV VISIT, NEW, AGE 40-64 [facility], [address], [place], [place], [address], [place] tel:[phone] [facility] Physical (chief complaint) Encounter for general adult medical exam w abnormal findingsHypothyroid ism, unspecifiedAbnormal weight lossDepression Sep-0 7 Russel Lee. [address], [place], [place], [address] , [place]. tel:[phone] Referring Provider: Jesus Goode, [address], [place], [place], [address]. tel:[phone] OFFICE/OUTPA TIENT VISIT, EST [facility], [address], [place], [place], [address], [place] tel:[phone] [facility] HLP (chief complaint) Depression (chief complaint) Hypothyroi dism (chief complaint) Other and unspecified hyperlipidemiaDepre ssionHypothyroidism 2 4 Russel Lee. [address], [place], [place], [address] , [place]. tel:[phone] PREV VISIT, EST, AGE 40-64 [facility], [address], [place], [place], [address], [place] tel:[phone] [facility] Physical (chief complaint) Dietary surveillance and counselingRoutine Medical ExamRoutine Medical Exam 4 Russel Lee. [address], [place], [place], [address] , [place]. tel:[phone] Family History Family Member Type Diagnosis Age At Onset Mother Problem (finding) Alive and well Father Problem (finding) Hypertension Brother Problem (finding) Alive and well Payers Payer name Insurance type Covered constitution party ID Authoriza tion(s) No Information Social History Type Description Quantity Date Captured Comments Alcohol Use Details Unknown Caffeine Use Details Unknown Tobacco Use Status Smoking Status No Information Sex Female Chief Complaint And Reason For Visit No Information Plan Of Treatment Date Type Action Status Goal Tdap. Due on due Goal Td vaccine. Due on due Goal Depression screening. Due on due Goal Pap/HPV testing. Due on due Goal Depression screening. Due on due Goal Pap/HPV testing. Due on due Goal Td vaccine. Due on due Goal Tdap. Due on due Goal Tobacco cessation counseling completed Goal Tobacco cessation counseling completed Referral Ordered: MAMMOGRAM, SCREENING ordered History Of Present Illness Encounter Date Complaint History Of Prese nt Illness HTN Pt has HTN today . Pt denies any h/o HTN Pt denies any chest pain or headache anxiety1 Pt has chronic a nxiety and depression. Pt takes effexor and doing ok. Pt denies any sucidal or homicidal thought. Pt denies any cyring spells vitmai D Pt has low vitam in D. HLP Pt has HLP. Pt h as high TC and also TG pt states that she does not eat poorly. hypothyroidism1 Pt has hypothyro idism. Her TSH is ok. Thyroglobulin is midly high. Pt denies any fatigue or palpitation Physical Pt needs annual physical. pt has chornic hypothyroidism. Pt takes synthroid 112 mcg daily. Pt denies any chest pain or headache or fatigue Pt has chronic anxiety and deprssion and she takes effexor and doing ok. Pt denies any suicidal or homicidal thought. Pt denies any crying spells. Pt also has been off statin for at least one year. Her prevoius PCP told her she did not need anymore. Pt denies any other complaints Instructions Date Instruction Additional Infor mation Quit smoking Related to Hypot hyroidism Increase physical activity Relat ed to Hypothyroidism Prescribed Diet Educ ation/Lifestyle Education Regarding Diet Related to Dietary Surveillance and Counseling Prescribed Activity and Exercise Education Related to Dietary Surveillance and Counseling Weight management Related to Hyp othyroidism, unspecified Prescribed Diet Educ ation/Lifestyle Education Regarding Diet Related to Dietary Surveillance and Counseling Prescribed Activity and Exercise Education Related to Dietary Surveillance and Counseling Quit smoking Related to Hypot hyroidism, unspecified Increase physical activity Relat ed to Hypothyroidism, unspecified Dietary counseling Related to Di etary surveillance counseling Decrease caloric intake Related to Dietary surveillance counseling Assessments Type Assessment Date No Information
--- OUTSIDE RECORDS SUMMARY | 2024-04-20 18:59 | XMS_ITS | Clinical Summary ---
Author Organization [facility] Address [address] [place] [address] Care Team Providers Care Auto Locator Name Role Phone Katty Turk PA-C Primary Care Provider [phone] Allergies Active Allergy Reactions Criticality Noted Date Comments Codeine Blurred vision 11/16/2021 Morphine And Codeine Hives 11/16/2021 Penicillins Anaphylaxis High 11/16/2021 Sulfa Antibiotics Rash Low 11/16/2021 Medications albuterol sulfate HFA 108 (90 Base) MCG/ACT inhaler 11/18/19 22 Active EQ ASPIRIN ADULT LOW DOSE 81 MG tablet Take 1 tablet (81 mg total) by mouth daily. 10/23/19 23 Active atorvastatin (LIPITOR) 40 MG tablet TAKE 1 TABLET BY MOUTH ONCE DAILY IN THE EVENING . APPOINTMENT REQUIRED FOR FUTURE REFILLS 10/17/19 23 Active escitalopram (LEXAPRO) 5 MG tablet Take 1 tablet (5 mg total) by mouth daily. 10/15/19 23 Active EUTHYROX 100 MCG tablet 12/02/19 22 Active nitrofurantoin, macrocrystal-monoh ydrate, (MACROBID) 100 MG capsule take 1 capsule by mouth every 12 hours for 5 days 11/08/19 23 Active venlafaxine XR (EFFEXOR-XR) 150 MG 24 hr capsule Take 1 capsule (150 mg total) by mouth daily. 08/24/19 23 Active ondansetron (ZOFRAN-ODT) 4 MG disintegrating tablet Take 1 tablet (4 mg total) by mouth every 8 (eight) hours as needed for Nausea. 20 tablet 11/12/19 23 Active naproxen (NAPROSYN) 500 MG tablet Take 1 tablet (500 mg total) by mouth 2 (two) times daily with meals. 20 tablet 12/03/19 Active famotidine (PEPCID) 20 MG tablet Take 1 tablet (20 mg total) by mouth 2 (two) times daily. 20 tablet 12/03/19 Active Social History Tobacco Use Types Packs/Day Years Used Date Smoking Tobacco: Every Day Cigarettes Smokeless Tobacco: Never Tobacco Cessation:Ready to Q uit: Not Asked; Counseling Given: Not Answered Alcohol Use Standard Drinks/Week Comments Never 0 (1 standard drink = 0.6 oz pur e alcohol) Comments No Sex and Gender Information Value Date Recorded Sex Assigned at Not on file Legal Sex Female 7:17 PM CDT Gender Identity Not on file Sexual Orientation Not on file Last Filed Vital Signs Vital Sign Reading Time Taken Comments Blood Pressure 139/70 12/02/2022 6:30 PM CDT Pulse 67 12/02/2022 6:30 PM CDT Temperature 36.5 C (97.7 F) 12/02/2022 6:30 PM CDT Respiratory Rate 20 12/02/2022 6:30 PM CDT Oxygen Saturation 97% 12/02/2022 6:30 PM CDT Inhaled Oxygen Concentration - - Weight 87.1 kg (192 lb) 12/02/2022 3:37 PM CDT Height 180.3 cm (5' 11 ) 12/02/2022 3:37 PM CDT Body Mass Index 26.78 12/02/2022 3:37 PM CDT Plan of Treatment Health Maintenance Due Date Last Done Comments Cervical Cancer Screening Pa p Smear (Age 30 to 64) Every 3 Years 1969 Colorectal Cancer Screening Colonoscopy (10 Years) 1969 Annual Physical 1972 Pneumococcal Vaccine: Pediat rics (0 to 5 Years) and At-Risk Patients (6 to 64 Years) (1 of 2 - PCV) 06/03/1975 Hepatitis C 06/03/1987 DTaP, Tdap and Td Vaccines ( 1 - Tdap) 1988 Hepatitis B Vaccines (1 of 3 - 19+ 3-dose series) 1988 Cervical Cancer Screening Pa p with HPV Testing (Age 30 to 64) Every 5 Years 06/03/1999 Cervical Cancer Screening with HPV 06/03/1999 Mammogram Screening 2009 Zoster Vaccines (1 of 2) 06/03/2019 COVID-19 Vaccine (2023-2 5 season) 2023 Influenza Adult (#1) 2023 Meningococcal B Vaccine Aged Out No l onger eligible based on patient's age to complete this topic Meningococcal Vaccine Aged Out No aaron montez eligible based on patient's age to complete this topic RSV Immunizations Under 20 Months Aged Out No longer eligible based on patient's age to complete this topic Insurance [facility] C/O PROVIDER SERVICES [place]SE [id number] Care Teams Auto Locator Relationship Specialty Start Date End Date Katty Turk PA-C [address] [place] [address] PCP - General NURSE PRACTITIONER 11/16/21
--- OUTSIDE RECORDS SUMMARY | 2024-04-20 18:59 | XMS_ITS | CONTINUITY OF CARE DOCUMENT ---
Author Name tanner hart Address Unknown Organization [facility] Address [address] [place] [address] [address] [place] [address] Phone [phone] Care Team Providers Care Conveyor Worker Name Role Phone Beth JJ, Eriberto Unavailable [phone] LIAT ZAVALETA PA-C Unavailable [phone] LIAT ZAVALETA PA-C Unavailable [phone] INSURANCE PROVIDERS Payer name Policy type / Coverage type Gordon red constitution party ID [facility] [id number]
== END 2024-04-20 16:43 | disposition home or self-care (01) ==
PROVIDERS: PCP Nurse Practitioner Family; Visit Provider Nurse Practitioner Family
DX: R74.8 Abnormal levels of other serum enzymes (principal); K76.0 Fatty (change of) liver, not elsewhere classified
CPT/HCPCS: 76705

== ENCOUNTER 2024-04-24 09:11 | Outpatient (CLI) | payer OTHER, SELFPAY ==
--- NOTE | 2024-04-24 09:27 | EST_ITS ---
Patient Info Name: Ariana Hicks Age: 53 years : 1970 Gender: Female Ht: 69 in Wt: 194 lbs BSA: 2.09 m2 HR: 65 bpm BP: 141 / 72 mmHg Exam Date: 04/24/2024 9:45 AM Exam Location: Echo Lab Patient Status: Outpatient Admit Date: 04/24/2024 Staff Ordering Physician: Eladia Damon NP Attending Provider: Eladia Damon NP Exercise Technologist: poncho patel Exercise Physician: Grey Cotto DO Exam Type: CA stress test treadmill Study Info Indications R06.09 - Other forms of dyspnea A treadmill exercise stress test was performed. Summary 1. 1. Negative Chirag exercise stress test for ischemic ST changes by ECG criteria. However, patient achieved only 82% MPHR for age group which reduces sensitivity of the test. 2. 2. Reduced functional capacity, achieving 5.6 METs of workload. 3. 3. Baseline hypertension with hypertensive response to exercise. 4. 4. Appropriate HR response to exercise. 5. 5. Appropriate HR recovery at 1 minute post exercise. 6. 6. No imaging with stress testing. 7. 7. Patient informed of the above results. Protocol: Chirag Stress ECG Details Stage: REST Duration (min): 0 min : 29 sec Speed (mph): 0.0 Grade (%): 0 HR (bpm): 65 SBP (mmHg): --- DBP (mmHg): --- METS: --- Stage: REST Duration (min): 6 min : 19 sec Speed (mph): 0.0 Grade (%): 0 HR (bpm): 75 SBP (mmHg): 159 DBP (mmHg): 77 METS: --- Stage: STAGE 1 Duration (min): 1 min : 0 sec Speed (mph): 1.7 Grade (%): 10 HR (bpm): 104 SBP (mmHg): 159 DBP (mmHg): 77 METS: --- Stage: STAGE 1 Duration (min): 2 min : 0 sec Speed (mph): 1.7 Grade (%): 10 HR (bpm): 118 SBP (mmHg): 159 DBP (mmHg): 77 METS: --- Stage: STAGE 1 Duration (min): 3 min : 0 sec Speed (mph): 1.7 Grade (%): 10 HR (bpm): 129 SBP (mmHg): 204 DBP (mmHg): 86 METS: --- Stage: STAGE 2 Duration (min): 0 min : 31 sec Speed (mph): 2.5 Grade (%): 12 HR (bpm): 127 SBP (mmHg): 204 DBP (mmHg): 86 METS: --- Stage: RECOVERY Duration (min): 0 min : 28 sec Speed (mph): 0.0 Grade (%): 0 HR (bpm): 135 SBP (mmHg): 204 DBP (mmHg): 86 METS: --- Stage: RECOVERY Duration (min): 1 min : 12 sec Speed (mph): 0.0 Grade (%): 0 HR (bpm): 119 SBP (mmHg): 204 DBP (mmHg): 86 METS: --- Rest HR: 75 bpm Peak HR: 136 bpm Rest Sys BP: 159 mmHg Peak Sys BP: 204 mmHg Max Pred HR: 166 bpm % Max Pred HR: 82 % Target HR: 141 bpm Max RPP: 27,744 bpm*mmHg Crocker Score: -1 BP Response: Patient exhibited a hypertensive response with stress Termination Reason: Maximal effort/unable to continue Cardiac Symptoms: Shortness of breath Max ST Seg Deviation: -0.90 mm Total Time: 3 min : 31 sec Rest Ballesteros BP: 77 mmHg Peak Ballesteros BP: 86 mmHg Angina Score: None Total METS: 5.6 Resting ECG Sinus rhythm. Stress ECG No ST changes. Arrhythmias None. Report Signatures
--- OUTSIDE RECORDS SUMMARY | 2024-04-24 09:39 | XMS_ITS | Clinical Summary ---
Author Organization [facility] Address [address] [place] [address] Care Team Providers Care Development Specialist Name Role Phone Katty Turk PA-C Primary Care Provider [phone] Allergies Active Allergy Reactions Criticality Noted Date [...] patient's age to complete this topic Insurance [facility] C/O PROVIDER SERVICES CHRISTO ROSE [id number] Care Teams Development Specialist Relationship Specialty Start Date End Date Katty Turk PA-C [address] [place] [id number] PCP - General NURSE PRACTITIONER 11/16/21
--- OUTSIDE RECORDS SUMMARY | 2024-04-24 09:39 | XMS_ITS | Continuity of Care Document ---
Author Organization [facility] Address [address] [facility] [place] [address] Phone Care Team Providers Care Industrial Economist Name Role Phone Jesus Goode MD Unavailable [...] Diagnoses Date Provider Providers Copied on Encounter [facility], [address] [facility] [facility] [place], [place], [address], tel:[phone] [facility] No Information 8 Russel Lee. [address] [facility] [place], [address] , [place]. tel:[phone] OFFICE/OUTPA TIENT VISIT, EST [facility], [address], [place], [place], [address], [place] tel:[phone] [facility] hypothyroi dism1 (chief complaint) HLP (chief complaint) vitmai D (chief complaint) anxiety1 (chief complaint) HTN (chief complaint) HypothyroidismEssen tial (primary) hypertensionHyperli pidemiaVitamin D deficiency, unspecified Oct-0 7 Russel Lee. [address], [place], [place], [address] , [place]. tel:[phone] Referring Provider: Hoda Sebastian [address], [place], [place], [address]. tel:[phone] PREV VISIT, NEW, AGE 40-64 [facility], [address], [place], [place], [address], [place] tel:[phone] [facility] Physical (chief complaint) Encounter for general adult medical exam w abnormal findingsHypothyroid ism, unspecifiedAbnormal weight lossDepression Sep-0 7 Russel Lee. [address], [address], [place], [place], [address] , [place]. tel:[phone] Referring Provider: Jesus Goode, [address], [place], [place], [address]. tel:[phone] OFFICE/OUTPA TIENT VISIT, EST [facility], [address], [place], [place], [address], [place] tel:[phone] [facility] HLP (chief complaint) Depression (chief complaint) Hypothyroi dism (chief complaint) Other and unspecified hyperlipidemiaDepre ssionHypothyroidism 2 4 Russel Lee. [address], [place], [place], [address] , [place]. tel:[phone] PREV VISIT, EST, AGE 40-64 [facility], [address], [place], [place], [address], [place] tel:[phone] [facility] Physical (chief complaint) Dietary surveillance and counselingRoutine Medical ExamRoutine Medical Exam 8201 4 Russel Lee. [address], [place], [place], [address] , [place]. tel:[phone] Family History Family Member Type Diagnosis Age At Onset Mother Problem (finding) Alive and well Father Problem (finding) Hypertension Brother Problem (finding) Alive and well Payers Payer name Insurance type Covered republican ID Authoriza tion(s) No Information Social History Type Description Quantity Date Captured Comments Alcohol Use Details Unknown Caffeine Use Details Unknown Tobacco Use Status Smoking Status No Information Sex Female Chief Complaint And Reason For Visit No Information Plan Of Treatment Date Type Action Status Goal Td vaccine. Due on due Goal Tdap. Due on due Goal Pap/HPV testing. Due on due Goal Depression screening. Due on due Goal Td vaccine. Due on due Goal Tdap. Due on due Goal Pap/HPV testing. Due on due Goal Depression screening. Due on due Goal Tobacco cessation counseling completed Goal Tobacco cessation counseling completed Referral Ordered: MAMMOGRAM, SCREENING ordered History Of Present Illness Encounter Date Complaint History Of Prese nt Illness hypothyroidism1 Pt has hypothyro idism. Her TSH is ok. Thyroglobulin is midly high. Pt denies any fatigue or palpitation HLP Pt has HLP. Pt h as high TC and also TG pt states that she does not eat poorly. vitmai D Pt has low vitam in D. anxiety1 Pt has chronic a nxiety and depression. Pt takes effexor and doing ok. Pt denies any sucidal or homicidal thought. Pt denies any cyring spells HTN Pt has HTN today . Pt denies any h/o HTN Pt denies any chest pain or headache Physical Pt needs annual physical. pt has [...] Weight management Related to Hyp othyroidism, unspecified Quit smoking Related to Hypot hyroidism, unspecified Increase physical activity Relat ed to Hypothyroidism, unspecified Prescribed Diet Educ ation/Lifestyle Education Regarding Diet Related to Dietary Surveillance and Counseling Prescribed Activity and Exercise Education Related to Dietary Surveillance and Counseling Dietary counseling Related to Di etary surveillance counseling Decrease caloric intake Related to Dietary surveillance counseling Assessments Type Assessment Date No Information
--- OUTSIDE RECORDS SUMMARY | 2024-04-24 09:39 | XMS_ITS | Patient Health Summary ---
Author Organization [facility] Address [address] [place] [address] Care Team Providers Care News Photographer Name Role Phone Katty Turk PA-C Primary Care Provider Note from [facility],non-owned Affiliates and Associated Physician Practices is amultiple site organization consisting of ambulatory clinics and hospital sitesin [place], [place], [place] and [place]. This disclosure is being madepursuant to the Care Everywhere program and may not contain all information available regarding this patient. Last updated 17.[facility] Allergies * Bactrim Ds(Itching,Rash,Swelling) -Medium Criticality [...] Sex Assigned at Female 02/07/2021 3:42 PM DECISION ANALYST Gender Identity Female 02/07/2021 3:42 PM DECISION ANALYST Sexual Orientation Straight 02/07/2021 3: 42 PM DECISION ANALYST Last Filed Vital Signs Vital Sign Reading Time Taken Comments Blood Pressure 140/70 02/15/2021 10:30 AM DECISION ANALYST Pulse 90 02/15/2021 10:30 AM DECISION ANALYST Temperature 36.1 C (97 F) 02/15/2021 10:30 AM DECISION ANALYST Respiratory Rate 16 02/15/2021 10:30 AM DECISION ANALYST Oxygen Saturation 99% 02/15/2021 10:30 AM DECISION ANALYST Inhaled Oxygen Concentration - - Weight 84.8 kg (187 lb) 02/15/2021 10:30 AM DECISION ANALYST Height 182.9 cm (6') 02/15/2021 10:30 AM DECISION ANALYST Body Mass Index 25.36 02/15/2021 10:30 AM DECISION ANALYST Procedures * TIARA STAINING PATTERNS REFLEXED(Performed 02/15/2021) [...] TSH REFLEX FREE T4 (02/15/2021 11:48 AM DECISION ANALYST) TSH 0.427 0.350 - 4.940 uIU/mL [facility] INSURANCE BILL Blood BLOOD SPECIMEN / Unknown 02/15/2021 11:48 AM DECISION ANALYST 02/15/2021 Narrative Resulting Agency Comment Lab Testing performed at: [address] [id number] Hernandez Altamirano DO LAB - CHEMISTRY ORDE RABLES Performing Organization Address City/[facility]/ZIP Co de Phone Number [facility] INSURANCE BILL [address] [place] [address] * (ABNORMAL) TIARA STAINING PATTERNS REFLEXED (02/15/2021 11:48 AM DECISION ANALYST) Pathologist [facility] Homogeneous Pattern 1:640(A) <1:80 [facility] INSURANCE BILL Note [facility] INSURANCE BILL Comment: COMMENT RANCHO ([facility]) Mixed pattern Methodology: Indirect Immunofluorescence Assay (IFA) utilgogoi Hep-2-Gamma cells. Nuclear Membrane Pattern 1:2560 [facility] INSURANCE BILL 02/15/2021 11:4 8 AM DECISION ANALYST 02/15/2021 Narrative Resulting Agency Comment Lab Testing performed at: [address] [id number] Hernandez Altamirano DO LAB - PATHOLOGY/CYTO LOGY ORDERABLES Performing Organization Address City/[facility]/ZIP Co de Phone Number [facility] INSURANCE BILL [address] [place] [address] * CARDIOLIPIN ANTIBODY IGA/IGG/IGM PANEL (02/15/2021 11:48 AM DECISION ANALYST) Cardiolipin Antibody IgG 12 0 - 14 [...] BLOOD SPECIMEN / Unknown 02/15/2021 11:48 AM DECISION ANALYST 02/15/2021 Narrative Resulting Agency Comment Lab Testing performed at: [facility] [address] [facility] [id number] Hernandez Altamirano DO LAB - SEROLOGY ORDER MAURILIO Performing Organization Address City/[facility]/ZIP Co de Phone Number [facility] INSURANCE BILL [address] [place] [address] * LUPUS ANTICOAGULANT PANEL W RFLX (02/15/2021 11:48 AM DECISION ANALYST) Pathologist [facility] PTT-LA 31.8 0.0 - 51.9 sec [facility] INSURANCE BILL dRVVT 32.4 0.0 - 47.0 sec [facility] INSURANCE BILL Interpretation Comment: [facility] INSURANCE BILL Comment:No lupus anticoagula nt was detected. Blood BLOOD SPECIMEN / Unknown 02/15/2021 11:48 AM DECISION ANALYST 02/15/2021 Narrative Resulting Agency Comment Lab Testing performed at: [address] [id number] Hernandez Altamirano DO LAB - HEMATOLOGY ORD ERABLES Performing Organization Address City/[facility]/ZIP Co de Phone Number [facility] INSURANCE BILL [address] [place] [address] * (ABNORMAL) RANCHO BLOOD SCREEN W/REFLEX TITER (02/15/2021 11:48 AM DECISION ANALYST) RANCHO Positive (A) Negative [facility] INSURANCE BILL Comment: Methodology: Indirect Immunofluorescence Assay (IFA) utilgogoi ng Hep-2-Gamma cells. Blood BLOOD SPECIMEN / Unknown 02/15/2021 11:48 AM DECISION ANALYST 02/15/2021 Narrative Resulting Agency Comment Lab Testing performed at: Formerly named [facility] [address] [facility] [id number] Hernandez Altamirano DO LAB - CHEMISTRY ORDE RABLES Performing Organization Address City/[facility]/ZIP Co de Phone Number [facility] INSURANCE BILL [address] [place] [address] * CHIKI DIRECT (02/15/2021 11:48 AM DECISION ANALYST) Chiki Direct Negative Negative [facility] INSURANCE BILL Blood BLOOD SPECIMEN / Unknown 02/15/2021 11:48 AM DECISION ANALYST 02/15/2021 Narrative Resulting Agency Comment Lab Testing performed at: [facility] [address] [facility] [id number] Hernandez Altamirano DO LAB - BLOOD BANK ORD ERABLES Performing Organization Address [facility]/ZIP Co de Phone Number [facility] INSURANCE BILL [address] [place] [address] * COMPLEMENT C3 C4 PANEL (02/15/2021 11:48 AM DECISION ANALYST) Complement C3 148 82 - 167 mg/dL [facility] INSURANCE BILL Complement C4 30 12 - 38 mg/dL [facility] INSURANCE BILL Blood BLOOD SPECIMEN / Unknown 02/15/2021 11:48 AM DECISION ANALYST 02/15/2021 Narrative Resulting Agency Comment Lab Testing performed at: [facility] [address] [facility] [id number] Hernandezserafin Altamirano LAB - CHEMISTRY HÉCTORE RABOLGA Performing Organization Address City/[facility]/ZIP Co de Phone Number [facility] INSURANCE BILL [address] [place] [address] * LAB (07/28/2020) Only the most recent of2 resultswithin the time period is included. Scanned Document SCANNING ONLY Care Teams News Photographer Relationship Specialty Start Date End Date Katty Turk PA-C [address] [place] [phone] PCP - General 04/09/22
--- OUTSIDE RECORDS SUMMARY | 2024-04-24 09:39 | XMS_ITS | Referral Summary ---
Author Organization [facility] Address [address] [facility] [place] [address] Care Team Providers Care Employment Training Specialist Name Role Phone Katty Turk PA-C Primary Care Provider Source Comments [facility],non-owned Affiliates and Associated Physician Practices is amultiple site organization consisting of ambulatory clinics and hospital sitesin [place], [place], [place] and [place]. This disclosure is being madepursuant to the Care Everywhere program and may not contain all information available regarding this patient. Last updated 17.[facility] [employer] Allergies Active Allergy Reactions Criticality Noted Date [...] 02/15/2021 Assessment & Plan (02/15/2021 11:24 AM DESIGN RELEASE ENGINEER): Identification of direct positive RANCHO with low [...] to be controlled on daily use of [id number]-[id number] Zyrtec. Rarely can hives be a manifestation [...] Sex Assigned at Female 02/07/2021 3:42 PM DESIGN RELEASE ENGINEER Gender Identity Female 02/07/2021 3:42 PM DESIGN RELEASE ENGINEER Sexual Orientation Straight 02/07/2021 3: 42 PM DESIGN RELEASE ENGINEER Last Filed Vital Signs Vital Sign Reading Time Taken Comments Blood Pressure 140/70 02/15/2021 10:30 AM DESIGN RELEASE ENGINEER Pulse 90 02/15/2021 10:30 AM DESIGN RELEASE ENGINEER Temperature 36.1 C (97 F) 02/15/2021 10:30 AM DESIGN RELEASE ENGINEER Respiratory Rate 16 02/15/2021 10:30 AM DESIGN RELEASE ENGINEER Oxygen Saturation 99% 02/15/2021 10:30 AM DESIGN RELEASE ENGINEER Inhaled Oxygen Concentration - - Weight 84.8 kg (187 lb) 02/15/2021 10:30 AM DESIGN RELEASE ENGINEER Height 182.9 cm (6') 02/15/2021 10:30 AM DESIGN RELEASE ENGINEER Body Mass Index 25.36 02/15/2021 10:30 AM DESIGN RELEASE ENGINEER Plan of Treatment Not on file Care Teams Employment Training Specialist Relationship Specialty Start Date End Date Katty Turk PA-C [address] [place] [phone] PCP - General 04/09/22
--- OUTSIDE RECORDS SUMMARY | 2024-04-24 09:39 | XMS_ITS | Referral Summary ---
Author Organization [facility] Address [address] [place] [address] Care Team Providers Care Admissions Manager Name Role Phone Eladia Damon MARIANO Primary Care Provider [phone] Allergies Active Allergy Reactions Criticality Noted Date [...] on file Legal Sex Female 6:13 PM TALENT DEVELOPMENT COORDINATOR Gender Identity Not on file Sexual Orientation Not on file Last Filed Vital Signs Vital Sign Reading Time Taken Comments Blood Pressure 110/96 01/03/2024 12:00 AM TALENT DEVELOPMENT COORDINATOR Pulse 84 01/03/2024 12:00 AM TALENT DEVELOPMENT COORDINATOR Temperature 36.8 C (98.3 F) 01/02/2024 6:24 PM TALENT DEVELOPMENT COORDINATOR Respiratory Rate 16 01/03/2024 12:00 AM TALENT DEVELOPMENT COORDINATOR Oxygen Saturation 99% 01/02/2024 11:12 PM TALENT DEVELOPMENT COORDINATOR Inhaled Oxygen Concentration - - Weight 88 kg (194 lb 0.1 oz) 01/02/2024 6:24 PM TALENT DEVELOPMENT COORDINATOR Height 180.3 cm (5' 11 ) 01/02/2024 6:24 PM TALENT DEVELOPMENT COORDINATOR Body Mass Index 27.06 01/02/2024 6:24 PM TALENT DEVELOPMENT COORDINATOR Plan of Treatment Not on file Insurance [facility] Care Teams Admissions Manager Relationship Specialty Start Date End Date Eladia Damon NP [address] [address] PCP - General Family Medicine 01/02/24
--- OUTSIDE RECORDS SUMMARY | 2024-04-24 09:39 | XMS_ITS | Clinical Summary ---
Author Organization [facility] Address [address] [place] [address] Care Team Providers Care Brake Operator Heavy Duty Name Role Phone DamonEladia MARIANO Primary Care Provider [phone] Allergies Active Allergy Reactions Criticality Noted Date [...] on file Legal Sex Female 6:13 PM CONCRETE BLOCK [place] Gender Identity Not on file Sexual Orientation Not on file Last Filed Vital Signs Vital Sign Reading Time Taken Comments Blood Pressure 110/96 01/03/2024 12:00 AM CONCRETE BLOCK [employer]ON Pulse 84 01/03/2024 12:00 AM CONCRETE BLOCK [employer]ON Temperature 36.8 C (98.3 F) 01/02/2024 6:24 PM CONCRETE BLOCK MASON Respiratory Rate 16 01/03/2024 12:00 AM CONCRETE BLOCK [employer]ON Oxygen Saturation 99% 01/02/2024 11:12 PM CONCRETE BLOCK [employer]ON Inhaled Oxygen Concentration - - Weight 88 kg (194 lb 0.1 oz) 01/02/2024 6:24 PM CONCRETE BLOCK MASON Height 180.3 cm (5' 11 ) 01/02/2024 6:24 PM CONCRETE BLOCK MASON Body Mass Index 27.06 01/02/2024 6:24 PM CONCRETE BLOCK [employer]ON Plan of Treatment Health Maintenance Due Date [...] patient's age to complete this topic Insurance [facility] Care Teams Brake Operator Heavy Duty Relationship Specialty Start Date End Date Eladia Damon NP [address] [address] PCP - General Family Medicine 01/02/24
--- OUTSIDE RECORDS SUMMARY | 2024-04-24 09:39 | XMS_ITS | CONTINUITY OF CARE DOCUMENT ---
Author Name tanner hart Address Unknown Organization [facility] Address [address] [place] [address] [address] [place] [address] Phone [phone] Care Team Providers Care Film Technician Name Role Phone Beth JJ, Eriberto Unavailable LIAT ZAVALETA PA-C Unavailable [phone] LIAT ZAVALETA PA-C Unavailable [phone] INSURANCE PROVIDERS Payer name Policy type / Coverage type Lynn red constitution party ID [facility] [id number]
--- OUTSIDE RECORDS SUMMARY | 2024-04-24 09:39 | XMS_ITS | Clinical Summary ---
Author Organization [facility] Address [address] [facility] [place] [address] Care Team Providers Care Criminal Defense Attorney Name Role Phone Katty Turk PA-C Primary Care Provider Source Comments [facility],non-owned Affiliates and Associated Physician Practices is amultiple site organization consisting of ambulatory clinics and hospital sitesin [place], [place], [place] and [place]. This disclosure is being madepursuant to the Care Everywhere program and may not contain all information available regarding this patient. Last updated 17.[facility] Allergies Active Allergy Reactions Criticality Noted Date [...] 02/15/2021 Assessment & Plan (02/15/2021 11:24 AM ADHESIVE PRIMER): Identification of direct positive RANCHO with low [...] to be controlled on daily use of ximo-lny-nzoshjt Zyrtec. Rarely can hives be a manifestation [...] Sex Assigned at Female 02/07/2021 3:42 PM ADHESIVE PRIMER Gender Identity Female 02/07/2021 3:42 PM ADHESIVE PRIMER Sexual Orientation Straight 02/07/2021 3: 42 PM ADHESIVE PRIMER Last Filed Vital Signs Vital Sign Reading Time Taken Comments Blood Pressure 140/70 02/15/2021 10:30 AM ADHESIVE PRIMER Pulse 90 02/15/2021 10:30 AM ADHESIVE PRIMER Temperature 36.1 C (97 F) 02/15/2021 10:30 AM ADHESIVE PRIMER Respiratory Rate 16 02/15/2021 10:30 AM ADHESIVE PRIMER Oxygen Saturation 99% 02/15/2021 10:30 AM ADHESIVE PRIMER Inhaled Oxygen Concentration - - Weight 84.8 kg (187 lb) 02/15/2021 10:30 AM ADHESIVE PRIMER Height 182.9 cm (6') 02/15/2021 10:30 AM ADHESIVE PRIMER Body Mass Index 25.36 02/15/2021 10:30 AM ADHESIVE PRIMER Plan of Treatment Health Maintenance Due Date [...] to complete this topic MENINGOCOCCAL (Group B) VACC INE SHARED DECISION-MAKING Aged Out No longer eligibl e based on patient's age to complete this topic MENINGOCOCCAL GROUPS A/C/Y/W VACCINE Aged Out No longer eligible b ased on patient's age to complete this topic Care Teams Criminal Defense Attorney Relationship Specialty Start Date End Date Katty Turk PA-C [address] [place] [phone] PCP - General 04/09/22
== END 2024-04-24 09:12 | disposition home or self-care (01) ==
LOC: ANHCARD 09:12
PROVIDERS: PCP Nurse Practitioner Family; Visit Provider Nurse Practitioner Family
DX: R68.89 Other general symptoms and signs (principal); I10 Essential (primary) hypertension
CPT/HCPCS: 93017